=== PATIENT | male | born 1940 | race Caucasian/White ===

== ENCOUNTER 2017-08-12 11:50 | Emergency (ER) | payer MEDICARE, OTHER, SELFPAY ==
[2017-08-12] VITALS (7 sets, daily range): BP systolic 165–192; BP diastolic 51–86; PULSE 58–62; RESP 16–20; TEMP 36.1; O2SAT 95–97; BMI 26.4
--- NOTE | 2017-08-12 12:18 | DI.US.S_ITS ---
PROCEDURE: US ABD AORTA ANEURYSM SCREEN INDICATIONS: 76-year-old male with abdominal aortic aneurysm repair, with abdominal pain radiating into back. TECHNIQUE: Real time scanning was performed of the aorta and iliac arteries, with image documentation. COMPARISON: [facility], , ABDOMEN COMPLETE, 02/23/2016, 7:52. FINDINGS: Aorta: Proximal aortic diameter measures 2.8 cm. Mid-aorta measures 4.6 x 6.4 cm. Distal aortic diameter is 1.7 cm. Aortic stent graft appears present, with surrounding hypoechoic thrombus. Iliac arteries: Right common iliac artery measures 1.3 cm. Left common iliac artery measures 1.4 cm. IMPRESSION: 1. Status post abdominal aortic aneurysm stent graft repair as before. [place] aneurysm sac is not significantly changed in overall size. 2. If there is clinical concern for aneurysm rupture, consider noncontrast abdomen and pelvis CT scan to assess for retroperitoneal hematoma. If there is clinical concern for an endoleak status post aortic stent graft repair, abdomen and pelvis CT angiography may be considered for further evaluation. Dictated by: Finn Pascual M.D. on 08/12/2017 at 13:15 Approved by: Finn Pascual M.D. on 08/12/2017 at 13:20
--- NOTE | 2017-08-12 12:34 | ED.CHESTPAIN ---
HPI - Chest Pain General Chief Complaint: Chest Pain Stated Complaint: CHEST PAIN Time Seen by Provider: 08/12/17 12:02 Source: patient and family Mode of arrival: ambulatory Limitations: no limitations History of Present Illness HPI narrative: 76-year-old male with history of hypertension and AAA repair presents to the emergency department with epigastric pain and radiation to his back since 1:00 a.m.. He states it is worse when he eats. He denies associated symptoms such as dizziness, weakness or lightheadedness. He has no shortness of breath. He has no nausea or vomiting. He states his pain started at 1:00 a.m. after drinking a cup of coffee and then lasted about an hour and a half. He was doing okay until this morning when he had some tea and the pain started again MD complaint: chest pain Onset (ago): hour(s) Duration: intermittent Onset: after eating Pain location: epigastric Severity: moderate Quality: aching Pain radiation: back Relieving factors: nothing Exacerbating factors: nothing Associated symptoms: nausea Related Data Home Medications Medication Instructions Recorded Confirmed atorvastatin [Lipitor] 20 mg PO HS #0 08/14/12 metoprolol tartrate 50 mg PO BID #0 08/14/12 Allergies Allergy/AdvReac Type Severity Reaction Status Date / Time ketorolac [KETOROLAC] AdvReac Unknown Unverified 06/14/17 12:52 Review of Systems Review of Systems All systems reviewed & are unremarkable except as noted in HPI and below Constitutional Denies chills, Denies fever(s), Denies lethargy and Denies weakness Eyes Denies change in vision, Denies eye discharge, Denies irritation and Denies loss of vision ENT Ears, Nose, Mouth, and Throat: Denies change in voice, Denies neck pain and Denies sore throat Cardiovascular Reports chest pain, Denies irregular heart rhythm, Denies lightheadedness, Denies palpitations, Denies dyspnea, Denies dyspnea on exertion and Denies orthopnea Respiratory Denies cough, Denies dyspnea, Denies dyspnea on exertion and Denies wheezing Gastrointestinal Gastrointestinal: Reports abdominal pain, Denies change in bowel habits, Denies diarrhea, Denies nausea and Denies vomiting Genitourinary Denies hematuria, Denies flank pain, Denies urinary incontinence and Denies urinary urgency Musculoskeletal Denies neck pain Integumentary/Breasts Denies pruritus, Denies erythema, Denies rash and Denies wounds Neurologic Denies confusion, Denies loss of vision and Denies weakness Psychiatric Denies anxiety, Denies confusion, Denies depression, Denies homicidal ideation and Denies suicidal ideation Endocrine Denies palpitations Hematologic/Lymphatic Denies easy bruising Allergic/Immunologic Denies wheezing PFSH Medical History AAA (abdominal aortic aneurysm) (Acute) HTN (hypertension) (Acute) Exam Narrative Exam Narrative: Pleasant 76-year-old male in moderate distress, obviously in pain Initial Vital Signs Initial Vital Signs: Vital Signs Temperature 97.0 F L 08/12/17 12:04 Pulse Rate 60 08/12/17 12:04 Respiratory Rate 20 08/12/17 12:04 Blood Pressure 192/84 H 08/12/17 12:04 Pulse Oximetry 97 08/12/17 12:04 Const General: cooperative and well developed Nutritional Appearance: well nourished Orientation: alert, awake, oriented x3 and not confused HENMT Head: normocephalic and atraumatic Ears: external ears normal and TM's normal bilaterally Nose: external nose normal and No nasal discharge Face and sinus: sinuses nontender, face symmetric, no sinus tenderness and No dry mucous membranes Mouth: oral mucosae normal and moist mucous membranes Teeth and gingiva: dentition normal Throat: tonsils normal and uvula midline Eyes General: appearance normal, both eyes and all related structures Eyelids: eyelids normal Conjunctivae: conjunctivae normal Sclera: sclerae normal Pupils: PERRL EOM: EOM intact bilaterally Chest Chest: normal inspection of the chest Resp Effort & Inspection: normal respiratory effort, able to speak in complete sentences, no respiratory distress and no use of accessory muscles Auscultation: clear to auscultation bilaterally, no rales, no rhonchi and no wheezes GI Inspection: non-distended Palpation: soft, no hepatosplenomegaly, No guarding, No pulsatile mass and tender (In the epigastrium) Auscultation: normal bowel sounds Back/Spine/Pelvis Back: No CVA tenderness Cervical Spine: cervical ROM normal and No pain with cervical ROM Thoracic/Lumbar Spine: thoracic and lumbar spine normal to inspection Skin General: no rashes or lesions noted, No jaundice and No petechiae Extrem General: full ROM, no clubbing, cyanosis or edema, no pedal edema and no calf tenderness Course Orders Ordered: ED Orders 08/12/17 12:18 US abd aorta aneurysm screen Stat 08/12/17 12:51 XR chest 1V Stat Complete Blood Count AUTO DIFF Stat Comprehensive Metabolic Panel Stat Lipase Stat Troponin with CK Cardiac Panel Stat Sodium Chloride (Normal Saline 0.9%) 1,000 mls @ 150 mls/hr IV CONT KAMALJIT Last Admin: 08/12/17 13:27 Dose: 150 mls/hr Discontinued Medications Aspirin (Aspirin Chew) 324 mg PO NOW ONE Stop: 08/12/17 12:52 Last Admin: 08/12/17 12:57 Dose: 324 mg Reevaluation(s) Reevaluation #1: patient continues to be asymptomatic Consultations Consultation #1: call to Vascular at [facility]. Given lack of symptoms, normal labs, relatively normal vitals, and normal AAA US they share the opinion that this is highly unlikely to be problem with AAA. No further recommendations Vital Signs - 8 hr 08/12/17 12:04 08/12/17 12:30 08/12/17 13:00 Temperature 97.0 F L Pulse Rate 60 62 60 Respiratory Rate 20 16 Blood Pressure 192/84 H Blood Pressure [Right Arm] 177/84 H 174/84 H Pulse Oximetry 97 95 95 08/12/17 13:30 08/12/17 14:00 08/12/17 14:30 Temperature Pulse Rate 60 61 58 L Respiratory Rate 19 16 20 Blood Pressure Blood Pressure [Right Arm] 165/86 H 173/51 H 169/83 H Pulse Oximetry 96 97 96 MDM - Chest Pain Differential Diagnosis Likely stable angina, unstable angina pectoris, atypical chest pain, st elevation myocardial infarction, costochondritis, chest pain, biliary colic and other Medical Records Data Attestation: I reviewed the patient's medical records. Lab Data Attestation: I reviewed the patient's lab results. Result diagrams: 08/12/17 12:51 08/12/17 12:51 Lab Results 08/12/17 08/12/17 Range/Units 12:51 12:51 WBC 10.8 (4.5-11.0) X10^3/uL RBC 5.37 (4.5-5.9) X10^6/uL Hgb 16.2 (13.5-17.5) g/dL Hct 47.8 (41-53) % MCV 89.1 (80-100) fL MCH 30.2 (26-34) PG MCHC 33.9 (30-36) % RDW 15.4 H (11.6-14.8) % Plt Count 148 L (150-400) X10^3/uL Neut % (Auto) 81.2 H (50-75) % Lymph % (Auto) 6.1 L (25-40) % Price % (Auto) 10.2 (3-14) % Eos % (Auto) 2.1 (2-4) % Baso % (Auto) 0.4 (0-2) % Neut # (Auto) 8800 H (6521-4448) /uL Sodium 140 (137-145) mmol/L Potassium 4.2 (3.4-5.1) mmol/L Chloride 106 (98-107) mmol/L Carbon Dioxide 21 L (22-32) mmol/L BUN 32 H (9-20) mg/dL Creatinine 2.10 H (0.66-1.25) mg/dL Estimated GFR 30.7 L (>60) mL/min BUN/Creatinine Ratio 15.2 (6-22) Glucose 119 H (80-110) mg/dL Calcium 9.2 (8.4-10.2) mg/dL Total Bilirubin 1.4 H (0.2-1.3) mg/dL AST 122 H (17-59) IU/L ALT 84 H (21-72) IU/L Alkaline Phosphatase 102 (38-126) U/L Total Creatine Kinase 43 L (55-170) U/L Troponin I < 0.012 (0.01-0.034) ng/mL Total Protein 7.4 (6.3-8.2) g/dL Albumin 3.6 (3.5-5.0) g/dL Globulin 3.8 (1.7-4.1) g/dL Albumin/Globulin Ratio 0.9 L (1.0-2.8) Lipase 152 (23-300) U/L Imaging Data US - abdomen: Radiologist's impression: PROCEDURE: US ABD AORTA ANEURYSM SCREEN INDICATIONS: 76-year-old male with abdominal aortic aneurysm repair, with abdominal pain radiating into back. TECHNIQUE: Real time scanning was performed of the aorta and iliac arteries, with image documentation. COMPARISON: [facility], US, ABDOMEN COMPLETE, 02/23/2016, 7:52. FINDINGS: Aorta: Proximal aortic diameter measures 2.8 cm. Mid-aorta measures 4.6 x 6.4 cm. Distal aortic diameter is 1.7 cm. Aortic stent graft appears present, with surrounding hypoechoic thrombus. Iliac arteries: Right common iliac artery measures 1.3 cm. Left common iliac artery measures 1.4 cm. IMPRESSION: 1. Status post abdominal aortic aneurysm stent graft repair as before. [place] aneurysm sac is not significantly changed in overall size. 2. If there is clinical concern for aneurysm rupture, consider noncontrast abdomen and pelvis CT scan to assess for retroperitoneal hematoma. If there is clinical concern for an endoleak status post aortic stent graft repair, abdomen and pelvis CT angiography may be considered for further evaluation. Dictated by: Finn Pascual M.D. on 08/12/2017 at 13:15 Approved by: Finn Pascual M.D. on 08/12/2017 at 13:20 MDM Narrative Medical decision making narrative: 11 hr in patient has no symptoms, normal EKG and no elevation in cardiac enzymes, this is not likely to be pain from a cardiac etiology. Ultrasound is unremarkable along with labs, unlikely to be problem with AAA or dissection. Finally the epigastric pain with radiation to his back started after eating both times. Lipase unremarkable, patient has no gallbladder. Discharge Plan Departure Patient Disposition: Home, Self-Care Clinical Impression: Abdominal pain, acute, epigastric Instructions: DI for Epigastric Pain Activity Restrictions/Additional Instructions: *You have been diagnosed with [ epigastric pain ] I have spoken with your Vascular Doctor at [place] whom is happy to allow you to go home *What to do: *Take medications as directed *Follow up with your primary care provider in 2-3 days *Return to ER if you should have any new, worsening or concerning symptoms Prescriptions: No Action atorvastatin [Lipitor] 20 MG tablet 20 mg PO HS Qty: 0 RF: 0 metoprolol tartrate 50 MG tablet 50 mg PO BID Qty: 0 RF: 0
--- NOTE | 2017-08-12 12:51 | DI.RAD.S_ITS ---
PROCEDURE: XR CHEST 1V INDICATIONS: 76 year-old male with chest pain. TECHNIQUE: One view of the chest was acquired. COMPARISON: [facility], CR, CHEST 2 VIEW, 05/08/2015, 16:12. [facility], CR, XR CHEST 1VW (PORTABLE), 12/06/2014, 11:04. [facility], CR, ABDOMEN ACUTE SERIES, 02/15/2014, 21:34. FINDINGS: Surgical changes and devices: Patient is status post coronary artery bypass grafting and cholecystectomy. Left chest wall dual chamber pacemaker is again noted. Lungs and pleura: No pleural effusions or pneumothorax. Lungs are clear. Mediastinum: Mediastinal contours appear normal. Heart size is normal. There is aortic atherosclerosis. Bones and chest wall: No suspicious bony lesions. Overlying soft tissues appear unremarkable. IMPRESSION: No acute cardiopulmonary disease. Dictated by: Finn Pascual M.D. on 08/12/2017 at 13:30 Approved by: Finn Pascual M.D. on 08/12/2017 at 13:31
[2017-08-12] MEDS: ASPIRIN 81 MG TAB 324 MG PO (12:57)
[2017-08-12] MEDS: SODIUM CHLORIDE 0.9% 1,000 ML 150 ML IV (13:27)
[2017-08-12 13:38] LABS: Hematocrit 47.8 % (41-53); Hemoglobin 16.2 g/dL (13.5-17.5); Neutrophils Absolute Auto 8800 /uL (3000-5900); White Blood Cell Count 10.8 X10^3/uL (4.5-11.0)
[2017-08-12 13:47] LABS: Add Manual Diff / Slide Review NO; Basophils Percent Auto 0.4 % (0-2); Eosinophils Percent Auto 2.1 % (2-4); Lymphocytes Percent Auto 6.1 % (25-40); Mean Corpuscular HGB Conc 33.9 % (30-36); Mean Corpuscular Hemoglobin 30.2 PG (26-34); Mean Corpuscular Volume 89.1 fL (80-100); Monocytes Percent Auto 10.2 % (3-14); Neutrophils Percent Auto 81.2 % (50-75); Platelet Count 148 X10^3/uL (150-400); Red Blood Cell Count 5.37 X10^6/uL (4.5-5.9); Red Cell Distribution Width 15.4 % (11.6-14.8)
[2017-08-12 13:49] LABS: Alanine Aminotransferase 84 IU/L (21-72); Albumin 3.6 g/dL (3.5-5.0); Albumin Globulin Ratio 0.9 (1.0-2.8); Alkaline Phosphatase 102 U/L (38-126); Aspartate Aminotransferase 122 IU/L (17-59); BUN Creatinine Ratio 15.2 (6-22); Bilirubin Total 1.4 mg/dL (0.2-1.3); Blood Urea Nitrogen 32 mg/dL (9-20); Calcium 9.2 mg/dL (8.4-10.2); Carbon Dioxide 21 mmol/L (22-32); Chloride 106 mmol/L (98-107); Creatine Kinase 43 U/L (55-170); Estimated Glomerular Filt Rate 30.7 mL/min (>60); Globulin 3.8 g/dL (1.7-4.1); Glucose 119 mg/dL (80-110); HEMOLYSIS < 15 (0-50); Lipase 152 U/L (23-300); Potassium 4.2 mmol/L (3.4-5.1); Sodium 140 mmol/L (137-145); Total Protein 7.4 g/dL (6.3-8.2)
[2017-08-12 14:17] LABS: Troponin I < 0.012 ng/mL (0.01-0.034)
== END 2017-08-12 14:54 | disposition home or self-care (01) ==
PROVIDERS: Emergency Provider Emergency Medicine; Family Provider Family Medicine; PCP Family Medicine
DX: R10.13 Epigastric pain (principal)
CPT/HCPCS: 71045; 76706; 80053; 82550; 82553; 83690; 84484; 85025; 93005; 96360; 96361; 99283; 99285

== ENCOUNTER → 2017-12-11 12:12 | Outpatient (CLI) | payer MEDICARE, OTHER, SELFPAY ==
[2017-12-11 12:48] LABS: Add Manual Diff / Slide Review NO; Basophils Percent Auto 0.5 % (0-2); Eosinophils Percent Auto 1.2 % (2-4); Hematocrit 49.3 % (41-53); Hemoglobin 16.7 g/dL (13.5-17.5); Lymphocytes Percent Auto 9.3 % (25-40); Mean Corpuscular HGB Conc 33.9 % (30-36); Mean Corpuscular Hemoglobin 30.7 PG (26-34); Mean Corpuscular Volume 90.5 fL (80-100); Monocytes Percent Auto 12.9 % (3-14); Neutrophils Absolute Auto 7300 /uL (3000-5900); Neutrophils Percent Auto 76.1 % (50-75); Platelet Count 165 X10^3/uL (150-400); Red Blood Cell Count 5.45 X10^6/uL (4.5-5.9); Red Cell Distribution Width 15.7 % (11.6-14.8); White Blood Cell Count 9.6 X10^3/uL (4.5-11.0)
[2017-12-11 13:52] LABS: BUN Creatinine Ratio 15.6 (6-22); Blood Urea Nitrogen 42 mg/dL (9-20); Calcium 9.7 mg/dL (8.4-10.2); Carbon Dioxide 28 mmol/L (22-32); Chloride 102 mmol/L (98-107); Glucose 96 mg/dL (80-110); HEMOLYSIS < 15 (0-50); Potassium 5.2 mmol/L (3.4-5.1); Sodium 141 mmol/L (137-145)
== END ==
PROVIDERS: Family Provider Family Medicine; PCP Family Medicine; Visit Provider Internal Medicine Cardiovascular Disease
DX: I25.10 Atherosclerotic heart disease of native coronary artery without angina pectoris (principal)
CPT/HCPCS: 36415; 80048; 85025

== ENCOUNTER → 2018-02-13 11:03 | Outpatient (CLI) | payer MEDICARE, OTHER, SELFPAY ==
--- NOTE | 2018-02-13 | DI.CT.S_ITS ---
PROCEDURE: CT KIDNEY URETER BLADDER (KUB) INDICATIONS: GROSS HEMATURIA PAINLESS ONE EPISODE TECHNIQUE: Noncontrast 5 mm thick sections acquired from the diaphragms to the symphysis. 5 mm thick coronal and sagittal reformats were then performed. For radiation dose reduction, the following was used: automated exposure control, adjustment of mA and/or kV according to patient size. COMPARISON: [facility], CT, ABDOMEN/PELVIS WITHOUT CONTRAS, 07/30/2013, 11:21. [facility], CT, KIDNEY/ URETER/BLADDER, 01/10/2007, 9:59. [facility], CT, KIDNEY/ URETER/BLADDER, 07/23/2006, 15:16. FINDINGS: Image quality: Excellent. Lung bases: Lung bases are clear. Heart size is normal. Urinary system: Both kidneys are normal in size. No kidney stones. No hydronephrosis or perinephric fat stranding. Bilateral renal cysts are present, which are increased in size and number compared to 07.30.13. There is a peripherally calcified cyst within the inferior pole left kidney posteriorly, measuring 22 mm anteroposterior, which is not significantly changed compared to 07.30.13. Both ureters appear non-dilated throughout their expected courses. Bladder wall thickness is normal; no calcified bladder stones. Other solid organs: Liver is normal in size. Gallbladder is surgically absent. Pancreas is normal in contours. There is high density material within the distal common bile duct, as before. There is no evidence of associated significant intrahepatic biliary ductal dilatation. Spleen is normal in size. No adrenal nodules. Peritoneum and bowel: Unenhanced bowel loops demonstrate normal wall thickness and caliber. No free fluid or air. Nodes and vessels: No retroperitoneal or mesenteric adenopathy by size criteria. Aortoiliac stent graft has been placed. The abdominal aortic aneurysm currently measures roughly 58 mm short axis, which is increased compared to 07.30.13. Abdominal wall: No ventral hernias. Pelvis: No free pelvic fluid. No inguinal hernias or adenopathy. Bones: No suspicious bony lesions. Right hip arthroplasty. No vertebral body compression fractures. IMPRESSION: 1. No evidence of collecting system calcification. No evidence of ureteral obstruction. 2. Stable peripherally calcified cyst involving the inferior pole left kidney. Increased bilateral renal cysts. Further assessment with renal protocol CT or ultrasound is recommended to assess for malignancy. 3. Increased abdominal aortic aneurysm compared to 5.27.14, with interval stent graft placement, new compared to prior examination. These findings could indicate an endoleak. Pre-and post contrast CT angiography of the abdomen and pelvis (aortic stent graft protocol) could be performed for further assessment, if clinically indicated. 4. Findings suggestive of choledocholithiasis without associated biliary ductal dilatation. This can be further assessed with MR CP, if clinically indicated. Dictated by: Kassi Cerrato M.D. on 02/13/2018 at 16:55 Approved by: Kassi Cerrato M.D. on 02/13/2018 at 17:02
== END ==
PROVIDERS: PCP Family Medicine; Visit Provider Specialist
DX: R31.0 Gross hematuria (principal); N28.1 Cyst of kidney, acquired; I71.4 Abdominal aortic aneurysm, without rupture
CPT/HCPCS: 74176

== ENCOUNTER → 2018-02-16 12:12 | Outpatient (CLI) | payer MEDICARE, OTHER, SELFPAY ==
[2018-02-20 14:13] LABS: PSA Free % 44 % (calc) (> 25); PSA, Total 1.6 ng/mL (< 4.1)
== END ==
PROVIDERS: PCP Family Medicine; Visit Provider Specialist
DX: N40.1 Benign prostatic hyperplasia with lower urinary tract symptoms (principal)
CPT/HCPCS: 36415; 84153; 84154

== ENCOUNTER → 2018-05-29 08:10 | Outpatient (CLI) | payer MEDICARE, OTHER, SELFPAY ==
--- NOTE | 2018-05-29 09:31 | PM.TREADMILL ---
Cardiac Stress Test Report Referral & Results Date Patient Seen: 05/29/18 Requesting provider: Vince Talbert Indication: Chest and jaw pain, known coronary disease Rest ECG: Unremarkable Procedure Note: After both written and verbal informed consent the patient had an IV started by the diagnostic imaging RN and then was hooked up to the treadmill monitoring system. The patient was placed on the treadmill at 1 mile an hour with no elevation and was then injected with the [place] scan material. The Cardiolite was then immediately administered. The patient spent an additional 2-3 minutes on the treadmill before being returned to the [facility] in the supine position. The patient had a normal response to all infused materials. Patient did experience jaw discomfort and in recovery started to experience left arm discomfort. He was given a dose of aminophylline which rapidly began to reverse the symptoms. There are no ECG changes associated with any of this. Impression: Response to refuse materials as above Please see perfusion imaging for details regarding possible ischemia Please note: Actual ECG tracings can be found in the PACS system.
--- NOTE | 2018-05-30 15:15 | DI.NM.S_ITS ---
DATE OF SERVICE: 05/29/2018 PROCEDURE PERFORMED: Pharmacologic stress and rest myocardial perfusion imaging with gating to assess ejection fraction and regional wall motion. ORDERING PROVIDER: Vince Talbert MD. INDICATIONS: The patient is an 77-year-old male status post CABG and PCI, most recently in 03/2016, who now presents with intermittent jaw discomfort and nocturnal anginal symptoms. CARDIAC STRESS: The patient was injected with 0.4 mg of regadenoson per protocol, augmented by walking on a treadmill. With this, he had a normal hemodynamic response achieving a maximum heart rate of 118 bpm (84% of his predicted maximum). He was mildly hypertensive at 160/100. He developed mild jaw discomfort and some mild weakness but no chest discomfort. His resting ECG shows sinus rhythm with inferolateral T-wave inversions. With stress, there are no significant ST-segment shifts, although there might be slight normalization of the T-wave inversion. There were no arrhythmias. Per protocol, 25.4 mCi a technetium-99 Myoview was injected, and the patient was imaged 15 minutes later using a gated SPECT acquisition protocol. The patient returned the following day and was reinjected with an additional 24.9 mCi of technetium-99 Myoview and was imaged 30 minutes later, again using a gated SPECT acquisition protocol. FINDINGS: 1. Raw Data: There is a fair myocardial tracer uptake. Moderate splenic uptake is noted. The lung/heart ratio is normal at 0.34 with a normal TID ratio of 0.78. 2. Quantitative Gated SPECT: Post stress ejection fraction is estimated at 36% with akinesis of the majority of the inferior and inferolateral wall, extending into the inferior septum at the base. The remaining segments appear to have mild hypokinesis. The resting ejection fraction 41%, although visually it appears identical to that of the post stress images with an identical contraction pattern. Resting end-diastolic volume is mildly increased at 157 mL. 3. Myocardial Perfusion Imaging: Post stress supine images shows absent perfusion in the proximal and mid inferolateral and inferior wall, extending into the proximal inferior septum with a moderate perfusion defect in the mid-to- distal inferolateral wall. The anterior wall and anterior septum appear to be fairly well perfused. This perfusion defect persists on the prone images. The resting images show a near-identical perfusion pattern with minimal improvement at the very periphery of the defect but this is essentially a fixed perfusion defect. CONCLUSION: 1. Abnormal myocardial perfusion study. 2. Severe, predominantly fixed perfusion defect involving the proximal and mid inferior and inferolateral wall, extending into the proximal inferior septum with minimal reversibility at the periphery of the defect consistent with a previous transmural infarction with very slight jaden-infarct ischemia but the volume of ischemia appears to be small. 3. Moderately reduced left ventricular systolic function with akinesis of the inferior and inferolateral segments consistent with previous infarction. There is mild left ventricular enlargement. 4. Jaw discomfort but no chest discomfort with vasodilator stress augmented by low-level walking. There are no compelling ST segment shifts to suggest ischemia, although there is slight normalization of baseline T-wave abnormalities. 5. An incidental finding of mildly increased splenic uptake is noted. Clinical correlation is recommended. 6. Compared to the previous myocardial perfusion study of 08/22/2013, the perfusion imaging appears to be near identical with a fairly large inferior and inferolateral fixed defect noted previously as well. The previous ejection fraction was 50% with an end-diastolic volume of 133 mL suggesting slight interval decline in systolic function with progressive left ventricular enlargement. Rich Paredes - YELITZA/jeremiah/ doc#: [id number]/job#: [id number] dd: 05/30/2018 12:26:00 dt: 05/30/2018 14:57:00 DICTATING MD/COPIES TO: Ramiro Bundy MD; Vince Talbert MD COPIES MNE: DONATO VERONICA
== END ==
PROVIDERS: PCP Family Medicine; Visit Provider Hospitalist
DX: I25.118 Atherosclerotic heart disease of native coronary artery with other forms of angina pectoris (principal); R68.84 Jaw pain; M79.602 Pain in left arm; Z95.5 Presence of coronary angioplasty implant and graft; Z95.1 Presence of aortocoronary bypass graft
CPT/HCPCS: 78452; 93016; 93017; 93018; A9502; J2785

== ENCOUNTER 2018-07-03 09:55 | Emergency (ER) | payer MEDICARE, OTHER, SELFPAY ==
[2018-07-03] VITALS (9 sets, daily range): BP systolic 159–184; BP diastolic 59–103; PULSE 52–62; RESP 13–21; TEMP 36.7; O2SAT 96–99
--- NOTE | 2018-07-03 10:17 | DI.RAD.S_ITS ---
PROCEDURE: XR CHEST 1V INDICATIONS: chest pain TECHNIQUE: One view of the chest was acquired. COMPARISON: [facility], CR, XR CHEST 1V, 08/12/2017, 13:04. FINDINGS: Surgical changes and devices: Median sternotomy wires and surgical clips are seen. A left chest wall cardiac device leads are seen in the region of right atrium and right ventricle. Lungs and pleura: Lungs are clear. No pleural effusions or pneumothorax. Mediastinum: Mediastinal contours appear normal. Heart size is enlarged. Bones and chest wall: No suspicious bony lesions. Overlying soft tissues appear unremarkable. IMPRESSION: No acute cardiopulmonary pathology. Dictated by: Naren Orta M.D. on 07/03/2018 at 10:52 Approved by: Naren Orta M.D. on 07/03/2018 at 10:53
[2018-07-03 10:35] LABS: Add Manual Diff / Slide Review NO; Basophils Absolute Auto 0 /uL (0-100); Basophils Percent Auto 0.2 % (0-2); Eosinophils Absolute Auto 300 /uL (0-450); Eosinophils Percent Auto 2.8 % (2-4); Hematocrit 43.2 % (41-53); Hemoglobin 14.6 g/dL (13.5-17.5); Lymphocytes Absolute Auto 800 /uL (1100-4500); Lymphocytes Percent Auto 7.8 % (25-40); Mean Corpuscular HGB Conc 33.8 % (30-36); Mean Corpuscular Hemoglobin 30.5 PG (26-34); Mean Corpuscular Volume 90.2 fL (80-100); Monocytes Absolute Auto 1100 /uL (0-900); Monocytes Percent Auto 11.5 % (3-14); Neutrophils Absolute Auto 7600 /uL (1500-7000); Neutrophils Percent Auto 77.7 % (50-75); Platelet Count 165 X10^3/uL (150-400); Red Blood Cell Count 4.79 X10^6/uL (4.5-5.9); Red Cell Distribution Width 15.1 % (11.6-14.8); White Blood Cell Count 9.8 X10^3/uL (4.5-11.0)
[2018-07-03 10:42] LABS: Alanine Aminotransferase 17 IU/L (21-72); Albumin Globulin Ratio 1.1 (1.0-2.8); Alkaline Phosphatase 70 U/L (38-126); Aspartate Aminotransferase 18 IU/L (17-59); BUN Creatinine Ratio 15.2 (6-22); Bilirubin Total 0.6 mg/dL (0.2-1.3); Blood Urea Nitrogen 38 mg/dL (9-20); Calcium 9.4 mg/dL (8.4-10.2); Carbon Dioxide 25 mmol/L (22-32); Chloride 105 mmol/L (98-107); Creatine Kinase 39 U/L (55-170); Globulin 3.8 g/dL (1.7-4.1); Glucose 84 mg/dL (80-110); HEMOLYSIS < 15 (0-50); Lipase 202 U/L (23-300); Potassium 4.4 mmol/L (3.4-5.1); Sodium 139 mmol/L (137-145); Total Protein 7.8 g/dL (6.3-8.2)
[2018-07-03 10:46] LABS: Prothrombin Time 11.9 SECONDS (10.1-12.7)
[2018-07-03 10:49] LABS: PTT Partial Thromboplastin Tim 42 SECONDS (26.4-36.2)
[2018-07-03 10:54] LABS: Troponin I < 0.012 ng/mL (0.01-0.034)
--- NOTE | 2018-07-03 13:34 | ED_ITS ---
HPI - Chest Pain <KORI Werner - Last Filed: 07/03/18 20:12> General Chief Complaint: Chest Pain Stated Complaint: JAW/ARM PAIN, SHORTNESS OF BREATH Time Seen by Provider: 07/03/18 10:47 Source: patient and family Mode of arrival: ambulatory Limitations: no limitations History of Present Illness HPI narrative: The patient is a 77-year-old maleNonsmoker presents with his for chief complaint of right jaw and arm pain. he states that this is consistent with his previous angina. 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 He states that he is on a long-acting nitro which he takes every night. He states he is taking his nitroglycerin for breakthrough chest pain every single day, several times a day. He denies any associated symptoms of palpitations, swelling of extremities shortness of breath or cough he states that the pain is low grade and he is pain-free at this point time. He followed up with his laundry housekeeper 2 weeks ago, who increased his long-acting nitro. he states he took 1 sublingual nitro last night as well as three this morning. Related Data Home Medications Medication Instructions Recorded Confirmed atorvastatin 80 mg PO BEDTIME 07/03/18 07/03/18 clopidogrel 75 mg PO DAILY 07/03/18 07/03/18 colchicine 0.6 mg PO BID PRN 07/03/18 07/03/18 fluorouracil 1 applic TOPICAL DIRECTED 07/03/18 07/03/18 isosorbide mononitrate 30 mg PO DAILY 07/03/18 07/03/18 isosorbide mononitrate 60 mg PO DAILY 07/03/18 07/03/18 metoprolol succinate 100 mg PO DAILY 07/03/18 07/03/18 nitroglycerin 0.4 mg SUBLINGUAL PRN PRN 07/03/18 07/03/18 sertraline 25 mg PO DAILY 07/03/18 07/03/18 Allergies Allergy/AdvReac Type Severity Reaction Status Date / Time ketorolac [KETOROLAC] AdvReac Unknown Unverified 06/14/17 12:52 Review of Systems <KORI Werner - Last Filed: 07/03/18 20:12> Review of Systems GENERAL: Denies chills, fatigue, malaise, fever, sweats. HEENT: Denies sinus pain, ear pain, sore throat, difficulty swallowing, dizziness. RESPIRATORY: Denies dyspnea, cough, wheezing, hemoptysis, sputum. CARDIOVASCULAR: See HPI GASTROINTESTINAL: Denies nausea, vomiting, abdominal pain, diarrhea, constipation, melena. : Denies dysuria, frequency, incontinence, hematuria, urinary retention. MUSCULOSKELETAL: denies weakness, joint pain, or bony pain SKIN: Denies rash, skin lesions, or other NEUROLOGIC: Denies weakness, headache, numbness, change in speech, confusion, seizures, incoordination. PSYCHIATRIC: No concerning psychosocial issues. 12 point review of systems is negative except for those stated above PFSH <KORI Werner - Last Filed: 07/03/18 20:12> Medical History AAA (abdominal aortic aneurysm) (Acute) HTN (hypertension) (Acute) Exam <KORI Werner - Last Filed: 07/03/18 20:12> Narrative Exam Narrative: GENERAL: This is a well-nourished, well-developed patient, no acute distress HEAD: Atraumatic. Normocephalic. No temporal or scalp tenderness. EYES: Pupils equal round and reactive. Extraocular motions intact. No scleral icterus. No injection or drainage. ENT: Nose without bleeding, purulent drainage or septal hematoma. Throat without erythema, tonsillar hypertrophy or exudate. Uvula midline. Airway patent. NECK: Trachea midline. No JVD or lymphadenopathy. Supple, nontender, no meningeal signs. CARDIOVASCULAR: Regular bradycardic rate and rhythm without murmurs, gallops, or rubs. RESPIRATORY: Clear to auscultation. Breath sounds equal bilaterally. No wheezes, rales, or rhonchi. No cough. No increased respiratory effort. GASTROINTESTINAL: Abdomen soft, non-tender, nondistended. No hepato-sple nomegaly, or palpable masses. No guarding. EXTREMITIES: No clubbing, cyanosis, or edema. No joint tenderness, effusion, or edema noted. BACK: Nontender without deformity or crepitance. No flank tenderness. NEURO: AOx3. SKIN: No rash or erythema. Initial Vital Signs Initial Vital Signs: Vital Signs Temperature 98.1 F 07/03/18 10:04 Pulse Rate 62 07/03/18 10:04 Respiratory Rate 18 07/03/18 10:04 Blood Pressure 177/103 H 07/03/18 10:04 Pulse Oximetry 99 07/03/18 10:04 <Bela Sarmiento MD - Last Filed: 07/03/18 20:52> Initial Vital Signs Initial Vital Signs: Vital Signs Temperature 98.1 F 07/03/18 10:04 Pulse Rate 62 07/03/18 10:04 Respiratory Rate 18 07/03/18 10:04 Blood Pressure 177/103 H 07/03/18 10:04 Pulse Oximetry 99 07/03/18 10:04 Course <LEONA Werner-ELSA - Last Filed: 07/03/18 20:12> Orders Ordered: ED Orders 07/03/18 12:47 B Type Natriuretic Peptide Stat 07/03/18 13:24 Troponin & CK Cardiac Panel Stat 07/03/18 14:10 Urine Microscopic Stat Vital Signs - 8 hr 07/03/18 13:00 07/03/18 13:37 07/03/18 14:30 Pulse Rate 53 L 52 L 52 L Respiratory Rate 15 21 13 Blood Pressure [Right Arm] 178/86 H 183/91 H 175/91 H Pulse Oximetry 98 07/03/18 18:30 07/03/18 19:32 Pulse Rate 55 L 58 L Respiratory Rate 15 15 Blood Pressure [Right Arm] 159/59 H 184/95 H Pulse Oximetry 98 96 <Bela Sarmiento MD - Last Filed: 07/03/18 20:52> Orders Ordered: ED Orders 07/03/18 12:47 B Type Natriuretic Peptide Stat 07/03/18 13:24 Troponin & CK Cardiac Panel Stat 07/03/18 14:10 Urine Microscopic Stat Vital Signs - 8 hr 07/03/18 13:00 07/03/18 13:37 07/03/18 14:30 Pulse Rate 53 L 52 L 52 L Respiratory Rate 15 21 13 Blood Pressure [Right Arm] 178/86 H 183/91 H 175/91 H Pulse Oximetry 98 07/03/18 18:30 07/03/18 19:32 Pulse Rate 55 L 58 L Respiratory Rate 15 15 Blood Pressure [Right Arm] 159/59 H 184/95 H Pulse Oximetry 98 96 MDM - Chest Pain <Blanchesara Walkermer, [employer] - Last Filed: 07/03/18 20:12> Lab Data Attestation: I reviewed the patient's lab results. Result diagrams: 07/03/18 10:20 07/03/18 10:20 Lab Results 07/03/18 07/03/18 07/03/18 Range/Units 10:20 10:20 10:20 WBC 9.8 (4.5-11.0) X10^3/uL RBC 4.79 (4.5-5.9) X10^6/uL Hgb 14.6 (13.5-17.5) g/dL Hct 43.2 (41-53) % MCV 90.2 (80-100) fL MCH 30.5 (26-34) PG MCHC 33.8 (30-36) % RDW 15.1 H (11.6-14.8) % Plt Count 165 (150-400) X10^3/uL Neut % (Auto) 77.7 H (50-75) % Lymph % (Auto) 7.8 L (25-40) % Josephine % (Auto) 11.5 (3-14) % Eos % (Auto) 2.8 (2-4) % Baso % (Auto) 0.2 (0-2) % Neut # (Auto) 7600 H (8979-8177) /uL Lymph # (Auto) 800 L (3442-1437) /uL Josephine # (Auto) 1100 H (0-900) /uL Eos # (Auto) 300 (0-450) /uL Baso # (Auto) 0 (0-100) /uL PT 11.9 (10.1-12.7) SECONDS INR 1.0 (0.9-1.3) APTT 42 H (26.4-36.2) SECONDS Sodium 139 (137-145) mmol/L Potassium 4.4 (3.4-5.1) mmol/L Chloride 105 (98-107) mmol/L Carbon Dioxide 25 (22-32) mmol/L BUN 38 H (9-20) mg/dL Creatinine 2.50 H (0.66-1.25) mg/dL Estimated GFR 25.0 L (>60) mL/min BUN/Creatinine Ratio 15.2 (6-22) Glucose 84 (80-110) mg/dL Calcium 9.4 (8.4-10.2) mg/dL Total Bilirubin 0.6 (0.2-1.3) mg/dL AST 18 (17-59) IU/L ALT 17 L (21-72) IU/L Alkaline Phosphatase 70 (38-126) U/L Total Creatine Kinase 39 L (55-170) U/L CK-MB (CK-2) TNP CK-MB (CK-2) Rel Index TNP Troponin I < 0.012 (0.01-0.034) ng/mL B-Natriuretic Peptide (<100) Total Protein 7.8 (6.3-8.2) g/dL Albumin 4.0 (3.5-5.0) g/dL Globulin 3.8 (1.7-4.1) g/dL Albumin/Globulin Ratio 1.1 (1.0-2.8) Lipase 202 (23-300) U/L Urine RBC (0-5/HPF) Urine WBC (0-5/HPF) Urine Bacteria (None) Ur Culture Indicated? 07/03/18 07/03/18 07/03/18 Range/Units 12:47 13:24 14:10 WBC (4.5-11.0) X10^3/uL RBC (4.5-5.9) X10^6/uL Hgb (13.5-17.5) g/dL Hct (41-53) % MCV (80-100) fL MCH (26-34) PG MCHC (30-36) % RDW (11.6-14.8) % Plt Count (150-400) X10^3/uL Neut % (Auto) (50-75) % Lymph % (Auto) (25-40) % Josephine % (Auto) (3-14) % Eos % (Auto) (2-4) % Baso % (Auto) (0-2) % Neut # (Auto) (6533-9973) /uL Lymph # (Auto) (7167-4215) /uL Josephine # (Auto) (0-900) /uL Eos # (Auto) (0-450) /uL Baso # (Auto) (0-100) /uL PT (10.1-12.7) SECONDS INR (0.9-1.3) APTT (26.4-36.2) SECONDS Sodium (137-145) mmol/L Potassium (3.4-5.1) mmol/L Chloride (98-107) mmol/L Carbon Dioxide (22-32) mmol/L BUN (9-20) mg/dL Creatinine (0.66-1.25) mg/dL Estimated GFR (>60) mL/min BUN/Creatinine Ratio (6-22) Glucose (80-110) mg/dL Calcium (8.4-10.2) mg/dL Total Bilirubin (0.2-1.3) mg/dL AST (17-59) IU/L ALT (21-72) IU/L Alkaline Phosphatase (38-126) U/L Total Creatine Kinase 37 L (55-170) U/L CK-MB (CK-2) TNP CK-MB (CK-2) Rel Index TNP Troponin I < 0.012 (0.01-0.034) ng/mL B-Natriuretic Peptide 201 H (<100) Total Protein (6.3-8.2) g/dL Albumin (3.5-5.0) g/dL Globulin (1.7-4.1) g/dL Albumin/Globulin Ratio (1.0-2.8) Lipase (23-300) U/L Urine RBC None seen (0-5/HPF) Urine WBC None seen (0-5/HPF) Urine Bacteria None seen (None) Ur Culture Indicated? Cult not indicated Urine Dip Bedside Urine Glucose Negative Bedside Urine Bilirubin - Negative Bedside Urine Ketone - Negative Urine Specific [place] 1.015 Bedside Urine Occult Blood +/- Bedside Urine pH 6.0 Bedside Urine Protein + 30 Bedside Urine Urobilinogen - Negative Bedside Urine Nitrite - Negative Bedside Urine Leukocytes - Negative Esterase Imaging Data Chest x-ray: Radiologist's impression: [address] [address] XRay Report Signed Patient: Rich Paredes GMR#: [id number] : 9Acct:[id number] Age/Sex: 77 / MDate of Service: 07/03/18 Loc: ED Accession Number: [id number] Procedure: XR chest 1V Ordering Provider: Bela Sarmiento MD PROCEDURE: XR CHEST 1V INDICATIONS: chest pain TECHNIQUE: One view of the chest was acquired. COMPARISON: [facility], CR, XR CHEST 1V, 08/12/2017, 13:04. FINDINGS: Surgical changes and devices: Median sternotomy wires and surgical clips are seen. A left chest wall cardiac device leads are seen in the region of right atrium and right ventricle. Lungs and pleura: Lungs are clear. No pleural effusions or pneumothorax. Mediastinum: Mediastinal contours appear normal. Heart size is enlarged. Bones and chest wall: No suspicious bony lesions. Overlying soft tissues a ppear unremarkable. IMPRESSION: No acute cardiopulmonary pathology. Dictated by: Naren Orta M.D. on 07/03/2018 at 10:52 Approved by: Naren Orta M.D. on 07/03/2018 at 10:53 ECG Data Attestation: I personally reviewed and interpreted this ECG as follows: Interpretation: Paced rhythm. Ventricular rate 50. No ST elevation or depression. No ectopy noted. MDM Narrative Medical decision making narrative: The patient is a 77-year-old male who presents with a concerning etiology of possible unstable angina given his frequency of nitroglycerin use. I spoke with Dr. Bolaños from [facility] cardiology, who requested that the patient be transferred to [facility] for admission. I spoke with Dr. Case from [facility], who stated that the patient should be transferred, but could go to the hospitalist. Per Cardiology no hepa rin was started before transfer. I spoke with the accepting hospitalist Dr Birch who was kind enough to accept the patient for transfer. The patient has 2-troponins, but cardiology requested that he be at [facility] given the patient's history. He remained hemodynamically stable throughout his stay in the emergency department. Patient remained chest pain-free throughout his stay in the emergency department. <Bela Sarmiento MD - Last Filed: 07/03/18 20:52> Lab Data Lab Results 07/03/18 07/03/18 07/03/18 Range/Units 10:20 10:20 10:20 WBC 9.8 (4.5-11.0) X10^3/uL RBC 4.79 (4.5-5.9) X10^6/uL Hgb 14.6 (13.5-17.5) g/dL Hct 43.2 (41-53) % MCV 90.2 (80-100) fL MCH 30.5 (26-34) PG MCHC 33.8 (30-36) % RDW 15.1 H (11.6-14.8) % Plt Count 165 (150-400) X10^3/uL Neut % (Auto) 77.7 H (50-75) % Lymph % (Auto) 7.8 L (25-40) % Josephine % (Auto) 11.5 (3-14) % Eos % (Auto) 2.8 (2-4) % Baso % (Auto) 0.2 (0-2) % Neut # (Auto) 7600 H (7740-6032) /uL Lymph # (Auto) 800 L (2290-1608) /uL Josephine # (Auto) 1100 H (0-900) /uL Eos # (Auto) 300 (0-450) /uL Baso # (Auto) 0 (0-100) /uL PT 11.9 (10.1-12.7) SECONDS INR 1.0 (0.9-1.3) APTT 42 H (26.4-36.2) SECONDS Sodium 139 (137-145) mmol/L Potassium 4.4 (3.4-5.1) mmol/L Chloride 105 (98-107) mmol/L Carbon Dioxide 25 (22-32) mmol/L BUN 38 H (9-20) mg/dL Creatinine 2.50 H (0.66-1.25) mg/dL Estimated GFR 25.0 L (>60) mL/min BUN/Creatinine Ratio 15.2 (6-22) Glucose 84 (80-110) mg/dL Calcium 9.4 (8.4-10.2) mg/dL Total Bilirubin 0.6 (0.2-1.3) mg/dL AST 18 (17-59) IU/L ALT 17 L (21-72) IU/L Alkaline Phosphatase 70 (38-126) U/L Total Creatine Kinase 39 L (55-170) U/L CK-MB (CK-2) TNP CK-MB (CK-2) Rel Index TNP Troponin I < 0.012 (0.01-0.034) ng/mL B-Natriuretic Peptide (<100) Total Protein 7.8 (6.3-8.2) g/dL Albumin 4.0 (3.5-5.0) g/dL Globulin 3.8 (1.7-4.1) g/dL Albumin/Globulin Ratio 1.1 (1.0-2.8) Lipase 202 (23-300) U/L Urine RBC (0-5/HPF) Urine WBC (0-5/HPF) Urine Bacteria (None) Ur Culture Indicated? 07/03/18 07/03/18 07/03/18 Range/Units 12:47 13:24 14:10 WBC (4.5-11.0) X10^3/uL RBC (4.5-5.9) X10^6/uL Hgb (13.5-17.5) g/dL Hct (41-53) % MCV (80-100) fL MCH (26-34) PG MCHC (30-36) % RDW (11.6-14.8) % Plt Count (150-400) X10^3/uL Neut % (Auto) (50-75) % Lymph % (Auto) (25-40) % Josephine % (Auto) (3-14) % Eos % (Auto) (2-4) % Baso % (Auto) (0-2) % Neut # (Auto) (8203-3119) /uL Lymph # (Auto) (6430-6711) /uL Josephine # (Auto) (0-900) /uL Eos # (Auto) (0-450) /uL Baso # (Auto) (0-100) /uL PT (10.1-12.7) SECONDS INR (0.9-1.3) APTT (26.4-36.2) SECONDS Sodium (137-145) mmol/L Potassium (3.4-5.1) mmol/L Chloride (98-107) mmol/L Carbon Dioxide (22-32) mmol/L BUN (9-20) mg/dL Creatinine (0.66-1.25) mg/dL Estimated GFR (>60) mL/min BUN/Creatinine Ratio (6-22) Glucose (80-110) mg/dL Calcium (8.4-10.2) mg/dL Total Bilirubin (0.2-1.3) mg/dL AST (17-59) IU/L ALT (21-72) IU/L Alkaline Phosphatase (38-126) U/L Total Creatine Kinase 37 L (55-170) U/L CK-MB (CK-2) TNP CK-MB (CK-2) Rel Index TNP Troponin I < 0.012 (0.01-0.034) ng/mL B-Natriuretic Peptide 201 H (<100) Total Protein (6.3-8.2) g/dL Albumin (3.5-5.0) g/dL Globulin (1.7-4.1) g/dL Albumin/Globulin Ratio (1.0-2.8) Lipase (23-300) U/L Urine RBC None seen (0-5/HPF) Urine WBC None seen (0-5/HPF) Urine Bacteria None seen (None) Ur Culture Indicated? Cult not indicated Urine Dip Bedside Urine Glucose Negative Bedside Urine Bilirubin - Negative Bedside Urine Ketone - Negative Urine Specific [place] 1.015 Bedside Urine Occult Blood +/- Bedside Urine pH 6.0 Bedside Urine Protein + 30 Bedside Urine Urobilinogen - Negative Bedside Urine Nitrite - Negative Bedside Urine Leukocytes - Negative Esterase Discharge Plan Departure Patient Disposition: [facility] Clinical Impression: Unstable angina pectoris Discharge Date/Time: 07/03/18 20:18 Interventions: ED Discharge Assessment Last Done: 07/03/18 19:49 Prescriptions: No Action atorvastatin 80 mg tablet 80 mg PO BEDTIME RF: 0 isosorbide mononitrate 30 mg tablet extended release 24 hr 30 mg PO DAILY RF: 0 fluorouracil 5 % cream 1 applic topical DIRECTED RF: 0 metoprolol succinate 100 mg tablet extended release 24 hr 100 mg PO DAILY RF: 0 clopidogrel 75 mg tablet 75 mg PO DAILY RF: 0 nitroglycerin 0.4 mg tablet, sublingual 0.4 mg Sublingual PRN PRN (Reason: Chest Pain) RF: 0 sertraline 25 mg tablet 25 mg PO DAILY RF: 0 colchicine 0.6 mg tablet 0.6 mg PO BID PRN (Reason: Gout) RF: 0 isosorbide mononitrate 60 mg tablet extended release 24 hr 60 mg PO DAILY RF: 0 Referrals: Kannan Schwarz MD [Primary Care Provider] -
[2018-07-03 13:46] LABS: Creatine Kinase 37 U/L (55-170)
[2018-07-03 13:49] LABS: B Type Natriuretic Peptide 201 (<100)
[2018-07-03 13:57] LABS: Troponin I < 0.012 ng/mL (0.01-0.034)
[2018-07-03 14:41] LABS: Bacteria Urine None Seen; RBC Urine None Seen (0-5/HPF); WBC Urine None Seen (0-5/HPF)
[2018-07-03 15:05] LABS: Culture Indicated Urine Cult Not Indicated
== END 2018-07-03 20:18 | disposition short-term general hospital (02) ==
PROVIDERS: Emergency Medicine; Emergency Provider Nurse Practitioner Family; PCP Family Medicine
DX: I20.0 Unstable angina (principal)
CPT/HCPCS: 36415; 36591; 71045; 80053; 81003; 81015; 82550; 83690; 83880; 84484; 85025; 85610; 85730; 93005; 99284; 99285

== ENCOUNTER → 2018-07-11 09:08 | Outpatient (CLI) | payer MEDICARE, OTHER, SELFPAY ==
[2018-07-11 10:39] LABS: Albumin 3.8 g/dL (3.5-5.0); BUN Creatinine Ratio 15.3 (6-22); Blood Urea Nitrogen 46 mg/dL (9-20); Calcium 9.3 mg/dL (8.4-10.2); Carbon Dioxide 22 mmol/L (22-32); Chloride 104 mmol/L (98-107); Estimated Glomerular Filt Rate 20.3 mL/min (>60); Glucose 133 mg/dL (80-110); HEMOLYSIS < 15 (0-50); Phosphorous 3.8 mg/dL (2.3-3.7); Potassium 4.6 mmol/L (3.4-5.1); Sodium 138 mmol/L (137-145)
== END ==
PROVIDERS: PCP Family Medicine; Visit Provider Internal Medicine Nephrology
DX: N18.4 Chronic kidney disease, stage 4 (severe) (principal)
CPT/HCPCS: 36415; 80069

== ENCOUNTER → 2018-11-15 09:53 | Outpatient (CLI) | payer MEDICARE, OTHER, SELFPAY ==
[2018-11-15 10:34] LABS: Albumin 4.3 g/dL (3.5-5.0); Blood Urea Nitrogen 48 mg/dL (9-20); Calcium 9.5 mg/dL (8.4-10.2); Carbon Dioxide 22 mmol/L (22-32); Chloride 104 mmol/L (98-107); Estimated Glomerular Filt Rate 15.9 mL/min (>60); Glucose 138 mg/dL (80-110); HEMOLYSIS 15 (0-50); Phosphorous 3.7 mg/dL (2.3-3.7); Potassium 4.7 mmol/L (3.4-5.1); Sodium 139 mmol/L (137-145)
== END ==
PROVIDERS: PCP Family Medicine; Visit Provider Internal Medicine Nephrology
DX: N18.4 Chronic kidney disease, stage 4 (severe) (principal)
CPT/HCPCS: 36415; 80069

== ENCOUNTER → 2018-12-04 07:57 | Outpatient (CLI) | payer MEDICARE, OTHER, SELFPAY ==
[2018-12-04 09:41] LABS: Add Manual Diff / Slide Review NO; Basophils Absolute Auto 0 /uL (0-100); Basophils Percent Auto 0.4 % (0-2); Eosinophils Absolute Auto 200 /uL (0-450); Eosinophils Percent Auto 2.4 % (2-4); Hematocrit 42.9 % (41-53); Hemoglobin 14.5 g/dL (13.5-17.5); Lymphocytes Absolute Auto 800 /uL (1100-4500); Lymphocytes Percent Auto 8.7 % (25-40); Mean Corpuscular HGB Conc 33.8 % (30-36); Mean Corpuscular Hemoglobin 31.3 PG (26-34); Mean Corpuscular Volume 92.4 fL (80-100); Monocytes Absolute Auto 900 /uL (0-900); Monocytes Percent Auto 9.9 % (3-14); Neutrophils Absolute Auto 7000 /uL (1500-7000); Neutrophils Percent Auto 78.6 % (50-75); Platelet Count 195 X10^3/uL (150-400); Red Blood Cell Count 4.64 X10^6/uL (4.5-5.9); Red Cell Distribution Width 15.5 % (11.6-14.8)
[2018-12-04 09:55] LABS: Appearance Urine UA CLEAR; Bilirubin Urine UA NEGATIVE (NEGATIVE); Color Urine UA YELLOW; Glucose Urine UA NEGATIVE (Negative); Ketones Urine UA NEGATIVE (NEGATIVE); Leukocyte Esterase Urine UA NEGATIVE (NEGATIVE); Nitrite Urine UA NEGATIVE (Negative); Occult Blood Urine UA NEGATIVE (Negative); Protein Urine UA 3+ (Negative); Specific Gravity Urine UA 1.015 (1.000-1.035); Urobilinogen Urine UA 0.2 E.U./dL (0.2)
[2018-12-04 10:06] LABS: Albumin 4.3 g/dL (3.5-5.0); BUN Creatinine Ratio 12.2 (6-22); Blood Urea Nitrogen 44 mg/dL (9-20); Calcium 9.4 mg/dL (8.4-10.2); Carbon Dioxide 24 mmol/L (22-32); Chloride 102 mmol/L (98-107); Estimated Glomerular Filt Rate 16.4 mL/min (>60); Glucose 207 mg/dL (80-110); HEMOLYSIS < 15 (0-50); Phosphorous 3.5 mg/dL (2.3-3.7); Potassium 4.7 mmol/L (3.4-5.1); Sodium 138 mmol/L (137-145)
[2018-12-04 10:35] LABS: Bacteria Urine Occasional (0-1); Culture Indicated Urine Cult Not Indicated; Hyaline Casts Urine 1-5/LPF; RBC Urine 0-1/HPF (0-5/HPF); WBC Urine 0-1/HPF (0-5/HPF)
[2018-12-04 11:27] LABS: Creatinine Urine Random 179.3 mg/dL
[2018-12-04 12:59] LABS: Microalbumi Creatinin Ratio Ur 3898.4 ug/mg CR (<30)
[2018-12-07 08:13] LABS: Parathyroid Hormone Int 148 pg/mL (14-64)
== END ==
PROVIDERS: PCP Family Medicine; Visit Provider Internal Medicine Nephrology
DX: N18.4 Chronic kidney disease, stage 4 (severe) (principal)
CPT/HCPCS: 36415; 80069; 81001; 82043; 82570; 83970; 85025

== ENCOUNTER → 2019-01-17 07:25 | Outpatient (CLI) | payer MEDICARE, OTHER, SELFPAY ==
--- NOTE | 2019-01-17 | DI.US.S_ITS ---
PROCEDURE: US RENAL COMPLETE INDICATIONS: CHRONIC KIDNEY DISEASE TECHNIQUE: Real-time scanning was performed of the kidneys and bladder, with image documentation. COMPARISON: [facility], , RENAL COMPLETE, 06/07/2010, 10:04. [facility], US, US RETROPERITONEAL, 07/06/2018, 9:16. FINDINGS: Kidneys: Kidneys are normal in size. Right kidney measures 9.6 cm long; left kidney measures 10.1 cm long. Right renal cortical thickness is 1.4 cm; left renal cortical thickness is 1.7 cm. Renal cortical echotexture is increased bilaterally. No hydronephrosis or nephrolithiasis. No suspicious solid mass lesions. Multiple renal cysts, largest on the right measuring up to 3.2 cm and on the left 1.9 cm. Bladder: Pre-void bladder volume is 50 mL. Post-void residual is 0 mL. Pre-void images demonstrate no intraluminal masses or stones. On pre-void images, bilateral ureteral jets are noted with color Doppler interrogation. (Of note, ureteral jets may not be detectable in up to 25% of cases due to insufficient differences in specific gravity between ureteral and bladder urine). Miscellaneous: No free pelvic fluid. IMPRESSION: 1. Increased renal cortical echogenicity bilaterally consistent with mild medical renal disease similar to prior examination. 2. Bilateral renal cysts redemonstrated. Dictated by: Jaya Best [facility] Interpreted: Artemio Wadsworth MD on 01/17/2019 at 8:44 Approved by: Artemio Wadsworth M.D. on 01/17/2019 at 10:11
== END ==
PROVIDERS: PCP Family Medicine; Visit Provider Internal Medicine Nephrology
DX: N18.4 Chronic kidney disease, stage 4 (severe) (principal); N28.1 Cyst of kidney, acquired
CPT/HCPCS: 76770

== ENCOUNTER → 2019-01-27 15:19 | Outpatient (CLI) | payer MEDICARE, OTHER, SELFPAY | PROVIDERS: PCP Family Medicine; Visit Provider Nurse Practitioner | DX: R60.9 Edema, unspecified (principal) ==

== ENCOUNTER → 2019-01-27 15:29 | Outpatient (ROUT) | payer MEDICARE, OTHER, SELFPAY | PROVIDERS: PCP Family Medicine; Visit Provider Nurse Practitioner | DX: R60.9 Edema, unspecified (principal) | CPT/HCPCS: 87070; 87075; 87077; 87186; 87205 ==

== ENCOUNTER → 2020-07-01 14:33 | Outpatient (CLI) | payer MEDICARE, SELFPAY ==
[2020-07-01] MEDS: COVID-19 VACC #2, MRNA(MOD) 100 MCG/0.5 ML VIAL IM (14:42)
== END ==
PROVIDERS: Visit Provider Internal Medicine
DX: Z23 Encounter for immunization (principal)
CPT/HCPCS: 0012A; 91301

== ENCOUNTER → 2020-07-21 15:37 | Outpatient (ROUT) | payer OTHER, MEDICARE, SELFPAY ==
[2020-07-21 16:04] LABS: BUN Creatinine Ratio 11.8 (6-22); Blood Urea Nitrogen 57 mg/dL (9-20); Calcium 9.4 mg/dL (8.4-10.2); Carbon Dioxide 23 mmol/L (22-32); Chloride 104 mmol/L (98-107); Estimated Glomerular Filt Rate 11.7 mL/min (>60); Glucose 140 mg/dL (80-110); HEMOLYSIS < 15 (0-50); Magnesium 2.3 mg/dL (1.6-2.3); Potassium 4.9 mmol/L (3.4-5.1); Sodium 136 mmol/L (137-145)
== END ==
PROVIDERS: Visit Provider Internal Medicine
DX: N18.6 End stage renal disease (principal)
CPT/HCPCS: 80048; 83735